=== PATIENT | female | born 1970 | race Native Hawaiian/Other Pacific Islander ===

== ENCOUNTER 2020-04-05 09:07 | Outpatient (CLI) | payer BC ==
[~2020-04-05] VITALS: Ht 165.1 cm; Wt 163.3 kg
[2020-04-05 09:18] VITALS: BP 153/72; TEMP 98.9
== END 2020-04-05 13:35 | disposition home or self-care (01) ==
LOC: INF 09:07
DX: E88.09 Other disorders of plasma-protein metabolism, not elsewhere classified (principal)
CPT/HCPCS: 96365; 96366; P9047

== ENCOUNTER 2020-10-24 12:35 | Outpatient (CLI) | payer BC | END 2020-10-24 19:36 | disposition home or self-care (01) | LOC: RAD 12:35 | PROVIDERS: ATTEND Nurse Practitioner Family | DX: R60.9 Edema, unspecified (principal); R10.9 Unspecified abdominal pain ==

== ENCOUNTER 2020-10-26 08:01 | Outpatient (CLI) | payer BC | END 2020-10-26 21:46 | disposition home or self-care (01) | LOC: CT 08:01 | PROVIDERS: ATTEND Nurse Practitioner Family | DX: R14.0 Abdominal distension (gaseous) (principal); R60.9 Edema, unspecified; R10.9 Unspecified abdominal pain; K74.60 Unspecified cirrhosis of liver; R60.1 Generalized edema; R06.02 Shortness of breath; D64.9 Anemia, unspecified; I10 Essential (primary) hypertension | CPT/HCPCS: 36415; 82565; 84520 ==

== ENCOUNTER 2020-10-27 11:35 | Outpatient (CLI) | payer BC | END 2020-10-27 20:34 | disposition home or self-care (01) | LOC: CT 11:35 | PROVIDERS: ATTEND Nurse Practitioner Family | DX: R14.0 Abdominal distension (gaseous) (principal); R18.8 Other ascites; K74.69 Other cirrhosis of liver; R10.9 Unspecified abdominal pain; R06.02 Shortness of breath ==